=== PATIENT | male | born 1935 | race Caucasian/White ===

== ENCOUNTER 2016-06-12 08:16 | Inpatient (IN) | payer MEDICARE ==
[~2016-06-12] VITALS: Ht 172.7 cm; Wt 81.6 kg
[2016-06-12] MEDS ORDERED: IV NS 0.9% 500 ML BAG IV ONE (08:30)
[2016-06-12] MEDS ORDERED: IV NS 0.9% 500 ML IV ONE (08:54)
[2016-06-12] MEDS ORDERED: IV SET PRIMARY 1 EA INFUS.SET MC ONE (08:54)
[2016-06-12] MEDS ORDERED: SILD50TA PO (08:55)
[2016-06-12 09:03] LABS: BASOPHILS % (AUTO) 0.3 % (0.0-2.0); DIFF TOTAL % 100 %; EOSINOPHILS % (AUTO) 0.5 % (0.0-6.0); HEMATOCRIT 44 % (39-51); HEMOGLOBIN 14.9 g/dL (13.5-17.5); LYMPHOCYTES # (AUTO) 0.8 /CMM (0.8-4.8); LYMPHOCYTES % (AUTO) 15.8 % (20.0-44.0); MEAN CORPUSCULAR HEMOGLOBIN 28 PG (26.0-33.0); MEAN CORPUSCULAR HGB CONC 34 g/dl (31.0-36.0); MEAN CORPUSCULAR VOLUME 83 fL (80-96); MONOCYTES # (AUTO) 0.4 /CMM (0.1-1.30); MONOCYTES % (AUTO) 6.9 % (2.0-12.0); NEUTROPHILS % (AUTO) 76.5 % (43.0-81.0); PLATELET COUNT (AUTO) 250 /CMM (150-450); RED BLOOD CELL COUNT(AUTO) 5.35 MIL/uL (4.5-6.0); WHITE BLOOD COUNT (AUTO) 5.3 K/uL (4.3-11.0)
[2016-06-12 09:18] LABS: ANION GAP 11 (5-14); CALCIUM, SERUM 8.7 mg/dL (8.5-10.1); CARBON DIOXIDE 26 mmol/L (21-32); CHLORIDE 105 mmol/L (98-107); CREATININE 0.9 mg/dL (0.6-1.3); GLUCOSE 145 mg/dL (74-106); POTASSIUM 3.9 mmol/L (3.5-5.1); SODIUM SERUM 138 mmol/L (136-145); UREA NITROGEN, BLOOD 15 mg/dL (7-18)
[2016-06-12 09:20] LABS: ALANINE AMINOTRANSFERASE 22 U/L (12-78); ALBUMIN 3.7 g/dL (3.4-5.0); ASPARTATE AMINOTRANSFERASE 7 U/L (15-37); BILIRUBIN,DIRECT 0.2 mg/dL (0.0-0.2); INDIRECT BILIRUBIN 0.8 mg/dL (0.0-1.1); INR 0.96 (0.87-1.13); PROTHROMBIN TIME 10.4 SECS (9.5-12.7); TOTAL PROTEIN, SERUM 7.4 g/dL (6.4-8.2)
[2016-06-12 09:22] LABS: TROPONIN I < 0.017 ng/mL (0.00-0.056)
[2016-06-12] MEDS ORDERED: ASPIRIN 325 MG TABLET ONE (09:26)
[2016-06-12] MEDS ORDERED: MECLIZINE HCL 25 MG TABLET ONE (09:29)
[2016-06-12] MEDS ORDERED: ASPIRIN 325 MG TABLET PO ONE (09:30)
[2016-06-12] MEDS ORDERED: MECLIZINE HCL 12.5 MG TABLET PO ONE (09:30)
[2016-06-12] MEDS ORDERED: ACETAMINOPHEN 325 MG TABLET PO PRN (11:30)
[2016-06-12 11:51] LABS: THYROID STIMULATING HORMONE 1.266 uIU/mL (0.358-3.74)
[2016-06-12] MEDS ORDERED: CT SWABBABLE VALVE TRANS SET 1 EA INFUS.SET MC ONE (13:37)
[2016-06-12] MEDS ORDERED: IOHEXOL-350 100 ML VIAL IV ONE (13:37)
[2016-06-12] MEDS ORDERED: IV NS 0.9% 250 ML IV ONE (13:37)
[2016-06-12 16:00] VITALS: BP 144/80
[2016-06-12 20:00] VITALS: BP_SYST 118; BP_SYST 132; BP_DIAS 73; BP_DIAS 79
[2016-06-12 20:02] VITALS: BP 132/73
[2016-06-12 20:05] VITALS: BP 113/64
[2016-06-12 22:00] VITALS: BP 132/73
[2016-06-13] VITALS (11 sets, daily range): BP systolic 110–157; BP diastolic 68–89
[2016-06-13 08:06] LABS: BASOPHILS % (AUTO) 0.5 % (0.0-2.0); DIFF TOTAL % 100 %; EOSINOPHILS # (AUTO) 0.1 /CMM (0.0-0.7); EOSINOPHILS % (AUTO) 2.9 % (0.0-6.0); HEMATOCRIT 44 % (39-51); HEMOGLOBIN 14.5 g/dL (13.5-17.5); LYMPHOCYTES # (AUTO) 1.6 /CMM (0.8-4.8); LYMPHOCYTES % (AUTO) 34.5 % (20.0-44.0); MEAN CORPUSCULAR HEMOGLOBIN 28 PG (26.0-33.0); MEAN CORPUSCULAR HGB CONC 33 g/dl (31.0-36.0); MEAN CORPUSCULAR VOLUME 84 fL (80-96); MONOCYTES # (AUTO) 0.4 /CMM (0.1-1.30); MONOCYTES % (AUTO) 9.1 % (2.0-12.0); NEUTROPHILS # (AUTO) 2.4 /CMM (1.8-8.9); PLATELET COUNT (AUTO) 255 /CMM (150-450); RED BLOOD CELL COUNT(AUTO) 5.18 MIL/uL (4.5-6.0); WHITE BLOOD COUNT (AUTO) 4.5 K/uL (4.3-11.0)
[2016-06-13 08:20] LABS: INR 0.99 (0.87-1.13); PROTHROMBIN TIME 10.7 SECS (9.5-12.7)
[2016-06-13 08:21] LABS: CALCIUM, SERUM 8.7 mg/dL (8.5-10.1); CREATININE 0.9 mg/dL (0.6-1.3); POTASSIUM 4.4 mmol/L (3.5-5.1)
[2016-06-13] MEDS: ATORVASTATIN 10 MG TABLET PO SCH (10:05)
[2016-06-13] MEDS ORDERED: FLU VACC QS 2016-17(36MOS+)/PF 0.5 ML DISP.SYRIN IM ONE (12:00)
[2016-06-13] MEDS: ASPIRIN 81 MG TAB.CHEW PO SCH (12:13)
[2016-06-13 16:10] LABS: CANNABINOID, URINE NEGATIVE (NEGATIVE); PHENCYCLIDINE SCREEN,URINE NEGATIVE (NEGATIVE)
[2016-06-13 16:13] LABS: ADD UA MICROSCOPIC NO; KETONES,URINE NEGATIVE (NEGATIVE); LEUKOCYTE ESTERASE ,URINE NEGATIVE (NEGATIVE); PH,URINE 5.5 (5.0-8.0)
[2016-06-14 08:00] VITALS: BP_SYST 151; BP_SYST 156; BP_DIAS 81
[2016-06-14] MEDS: ATORVASTATIN 10 MG TABLET PO SCH (08:21)
[2016-06-14] MEDS: ASPIRIN 81 MG TAB.CHEW PO SCH (08:21)
[2016-06-14] MEDS ORDERED: MECL12.582 PO (11:06)
== END 2016-06-14 14:26 | disposition home health service (06) | DRG 149 ==
LOC: ER 08:18 → TELE 10:44 → MED 06-13 10:17
PROVIDERS: ADMIT Nurse Practitioner Acute Care; ATTEND Nurse Practitioner Acute Care
DX: H81.10 Benign paroxysmal vertigo, unspecified ear (principal); E78.5 Hyperlipidemia, unspecified; I10 Essential (primary) hypertension; J01.90 Acute sinusitis, unspecified; I70.90 Unspecified atherosclerosis; I67.1 Cerebral aneurysm, nonruptured; F32.9 Major depressive disorder, single episode, unspecified
CPT/HCPCS: 36415; 70450-TC; 70496-TC; 70498-TC; 70551-TC; 71010-TC; 80048-TC; 80061-TC; 80076-TC; 80305; 81000-TC; 83880; 84443-TC; 84484-TC; 85025-TC; 85652-TC; 85730-TC; 86850-TC; 87081-TC; 92521; 93307-TC; 97001-TC; 97003-TC; 97116-TC; 97530-TC; A4606; A6403; J7040; J7050; J8597; Q2036; Q9967; Z7610

== ENCOUNTER 2016-06-21 11:04 | Outpatient (CLI) | payer MEDICARE ==
[~2016-06-21] VITALS: Ht 172.7 cm; Wt 80.7 kg
[~2016-06-21 11:04] MED LIST: MECL12.582 PO
[2016-06-21 11:09] VITALS: BP_SYST 136; BP_SYST 152; BP_DIAS 74; BP_DIAS 78
== END 2016-06-21 23:59 | disposition home or self-care (01) ==
LOC: CSC 11:04
PROVIDERS: ATTEND Internal Medicine
DX: G31.84 Mild cognitive impairment of uncertain or unknown etiology (principal); E78.5 Hyperlipidemia, unspecified; N52.9 Male erectile dysfunction, unspecified; H33.20 Serous retinal detachment, unspecified eye; R42 Dizziness and giddiness; I10 Essential (primary) hypertension; Z79.899 Other long term (current) drug therapy; J32.9 Chronic sinusitis, unspecified; H26.9 Unspecified cataract
CPT/HCPCS: G0463

== ENCOUNTER 2016-06-27 09:59 | Outpatient (CLI) | payer MEDICARE ==
[~2016-06-27] VITALS: Ht 172.7 cm; Wt 78.9 kg
[2016-06-27 10:10] VITALS: BP_SYST 133; BP_SYST 135; BP_DIAS 74; BP_DIAS 85
== END 2016-06-27 23:59 ==
LOC: CSC 09:59
PROVIDERS: ATTEND Internal Medicine
DX: R42 Dizziness and giddiness (principal); J32.8 Other chronic sinusitis; H26.9 Unspecified cataract; H33.20 Serous retinal detachment, unspecified eye; I10 Essential (primary) hypertension; G31.84 Mild cognitive impairment of uncertain or unknown etiology; Z82.49 Family history of ischemic heart disease and other diseases of the circulatory system; Z80.52 Family history of malignant neoplasm of bladder; E78.5 Hyperlipidemia, unspecified
CPT/HCPCS: G0463